=== PATIENT | female | born 1945 | race Caucasian/White ===

== ENCOUNTER 2016-10-27 06:52 | Day surgery (SDC) | payer MEDICARE, OTHER ==
[~2016-10-27] VITALS: Ht 165.1 cm; Wt 83.0 kg
[~2016-10-27 06:52] MED LIST: ASPI-586 PO; ATN50T PO; CLON1TAB27 PO; HCT25T PO; LACT10SO6 PO; LACTATED RINGERS 1,000 ML IV SCH; MELO-249 PO; SODIUM CHLORIDE FLUSH 3 ML SYR IV PRN; SOLI5TAB2 PO; SULF1TAB35 PO; TOLT2TAB5 PO; VENL150C PO
[2016-10-27 07:15] VITALS: BP 143/89
[2016-10-27] MEDS ORDERED: MIDAZOLAM 2 MG/2 ML (VERSED) VIAL ONE (07:16)
[2016-10-27] MEDS ORDERED: PROPOFOL 20 ML IV ONE (07:17)
[2016-10-27] MEDS ORDERED: ALFENTANIL 500 MCG/ML (ALFENTA) 5 ML AMP IV ONE (07:17)
[2016-10-27] MEDS ORDERED: PSYL660P17 PO (07:19)
[2016-10-27] MEDS ORDERED: MULT-1034 PO (07:19)
[2016-10-27] MEDS ORDERED: VIT1CAPS9 PO (07:42)
[2016-10-27] MEDS ORDERED: HYDR-3811 PO (07:42)
[2016-10-27 09:03] VITALS: BP 123/66
[2016-10-27 09:25] VITALS: BP 151/85
--- NOTE | 2016-10-27 09:38 | OPERATIVE REPORT ---
DATE OF OPERATION: 10/27/2016 PRE-OPERATIVE DIAGNOSIS: Screening colonoscopy POST-OPERATIVE DIAGNOSIS: 1. Normal colonoscopy. 2. Fair to poor bowel prep. OPERATIVE PROCEDURE: Total colonoscopy SURGEON: Brandin Lehman MD ANESTHESIA: Monitored anesthesia care FINDINGS: 1. The bowel prep was fair to poor, and there was some particulate stool in dependent areas of the colon that could not be completely suctioned or moved. Some very small polyps could have been missed in some of these areas. 2. No neoplasia, angiodysplasia, diverticula, or inflammation were seen. INDICATION: The patient is a 71-year-old referred by Dr. Marie for colonoscopy screening. She has not had any bowel habit changes and her family history is negative for colorectal cancer. DESCRIPTION OF PROCEDURE: The patient was informed of the risks and benefits and agreed to proceed. She was placed in the left lateral decubitus position and was administered IV sedation. When properly sedated a rectal exam was performed, which was normal. The lighted endoscope was passed into the rectum and advanced along the colon to the cecum. The ileocecal valve and the appendiceal orifice were able to be seen after I suctioned some of the liquid stool and small particles out of the cecum. The scope was slowly brought back through the ascending, transverse, descending, and sigmoid colon. The prep obscured a few areas as described. No neoplasia was seen and the rectum appeared normal on regular view and retroflexion. The scope was removed completing the procedure. The patient tolerated the procedure without complications. Due to the quality of the prep, I recommend considering a repeat screening colonoscopy in 5 years.
== END 2016-10-27 09:35 | disposition home or self-care (01) ==
LOC: ASC 06:52
PROVIDERS: ATTEND Surgery
PROC: 0DJD8ZZ Inspection of Lower Intestinal Tract, Via Natural or Artificial Opening Endoscopic (ICD-10-PCS; principal; 2016-10-27)
DX: Z12.11 Encounter for screening for malignant neoplasm of colon (principal); I10 Essential (primary) hypertension; E66.9 Obesity, unspecified; Z68.31 Body mass index [BMI] 31.0-31.9, adult; R32 Unspecified urinary incontinence; R35.1 Nocturia
CPT/HCPCS: 36415; 84132; G0121; J2250; J7120